=== PATIENT | male | born 1975 | race Caucasian/White ===

== ENCOUNTER → 2020-02-29 | Outpatient (CLI) | payer OTHER ==
[~2020-02-29] MED LIST: AIRBORNE GUMMI1 EACH PO; LORCET 5-325 M1 EACH PO; NORCO 5-325 TA1 EAC2 PO; SUPER THERAVIT1 EACH PO
== END ==
LOC: M.LAB 15:50
PROVIDERS: ATTEND Surgery
DX: Z01.812 Encounter for preprocedural laboratory examination (principal); Z20.828 Contact with and (suspected) exposure to other viral communicable diseases; D30.3 Benign neoplasm of bladder

== ENCOUNTER → 2020-03-04 | Day surgery (SDC) | payer OTHER ==
--- NOTE | ~2020-03-04 | OP ---
[facility] [address] [place] [address] OPERATIVE REPORT Name: GRISELDATOOTIE Martin Room: [facility]#: [id number] Admission: 03/04/20 Attend Phys: Carlos Saleem Discharge: Date of : 79 Report #: [id number] THIS REPORT FOR: //name// cc: Tyrone Fall Mohammad K. DO ~ CC: Carlos Fall DATE OF SERVICE: 03/04/2020 PREOPERATIVE DIAGNOSIS: Gallbladder polyp, chronic cholecystitis and abdominal pain. POSTOPERATIVE DIAGNOSIS: Gallbladder polyp, chronic cholecystitis and abdominal pain. OPERATION: Laparoscopic cholecystectomy. SURGEON: Carlos Saleem MD ANESTHESIA: General. ESTIMATED BLOOD LOSS: Minimal. SPECIMEN: Gallbladder. DESCRIPTION OF PROCEDURE: After informed consent was obtained, the patient was brought to the operating room and placed supine. SCDs were placed and working, preoperative antibiotics were administered, general anesthesia was induced. The abdomen was prepped and draped in the usual sterile fashion. A 10 mm incision was made below the umbilicus. Fascia was incised and a trocar was placed. Pneumoperitoneum was established. Three right upper quadrant 5 mm ports were placed. Gallbladder was grasped at the fundus and retracted cephalad. Infundibulum was grasped and retracted laterally. I dissected out the cystic duct and cystic artery. Cystic plate was fully identified. Cystic duct and artery were clipped and ligated leaving 2 clips on the remaining duct and one on the remaining artery. Gallbladder was then taken off the liver bed with electrocautery. It was placed into an Endopouch and removed. Fascia was then closed with a bcmsed-te-azaca 0 Vicryl. Skin was closed with 4-0 Monocryl. Incisions were sealed with Dermabond. COMPLICATIONS: [place] [address] OPERATIVE REPORT Name: GRISELDATOOTIE A Room: [facility]#: [id number] Admission: 03/04/20 Attend Phys: Carlos Saleem Discharge: Date of : 79 Report #: [id number] DISPOSITION: The patient was taken to recovery in satisfactory condition. By: [id number] Saleem MD /alvarado
--- NOTE | 2020-03-07 17:06 | PATH ---
[address] [address] PATHOLOGY RPT PROCEDURE Name: SHIV VILLALOBOS Room: [facility]#: [id number] Admission: 03/04/20 Date of : 79 Discharge: Report #: [id number] Path Case #: [id number] [facility] Accession Number: [id number] . 01 Material submitted: . gallbladder - GALLBLADDER AND CONTENTS . 01 Clinical history: . GALLBLADDER POLYPS . 02 Diagnosis: Gallbladder and contents: - Chronic cholecystitis with cholesterolosis including multiple prominent cholesterol polyps. . (AGUSTIN:mm; 03/07/2020) [facility] 03/07/2020 1341 Local . 02 Electronically signed: . Rafiq Yancey MD, Pathologist NPI- [id number] . 01 Gross description: . Received in formalin labeled "Shiv Villalobos, gallbladder and contents" is an intact cholecystectomy specimen measuring 7.5 x 3.4 x 3.0 cm. The serosa is ritter-green and smooth and the specimen is opened to reveal dark green velvety mucosa. Multiple polypoid areas are present within the gallbladder, covering 1% of the surfaces and ranging from 0.1-0.3 cm in greatest dimension. Four detached fragments of polypoid tissue are present within the lumen, measuring 1.0 x 0.8 x 0.5 cm in aggregate and ranging from 0.3-1.0 cm in greatest dimension. The average wall thickness is 0.1 cm. Calculi are not identified. [employer] sections of the specimen are submitted as follows: A1 cystic duct margin, rental sales representative fundus, rental sales representative body A2 fragments of detached polyps and polypoid areas on the mucosa ([facility] [place] 03/06/2020) [facility] 03/06/2020 [facility]3 Local . 02 Pathologist provided ICD-10: K81.1, K82.4 . 02 CPT . 832696 Specimen Comment: A courtesy copy of this report has been sent to [phone] Specimen Comment: [phone] Specimen Comment: Report sent to / DR BAHENA Performed at: [address] [place] [address] PATHOLOGY RPT PROCEDURE Name: SHIV VILLALOBOS Room: [facility]#: [id number] Admission: 03/04/20 Date of : 79 Discharge: Report #: [id number] Path Case #: [id number] [facility] [place] [address], [place], [place] [id number] MD Demond Kent MD Phone: [phone] Performed at: 02 [facility] [address], [place], [place] [id number] MD Rafiq Yancey MD Phone: [phone]
== END | disposition home or self-care (01) ==
LOC: M.SUR 10:16
PROVIDERS: ATTEND Surgery
DX: K82.4 Cholesterolosis of gallbladder (principal); R10.9 Unspecified abdominal pain; Z79.899 Other long term (current) drug therapy; Z88.8 Allergy status to other drugs, medicaments and biological substances

== ENCOUNTER → 2020-04-15 | Outpatient (CLI) | payer OTHER ==
[~2020-04-15] MED LIST changes: +NOHOMEMEDICATIONS
== END ==
LOC: M.LAB 06:48
PROVIDERS: ATTEND Surgery
DX: Z01.812 Encounter for preprocedural laboratory examination (principal); Z20.828 Contact with and (suspected) exposure to other viral communicable diseases

== ENCOUNTER → 2020-04-20 | Day surgery (SDC) | payer OTHER ==
--- NOTE | 2020-04-26 10:07 | PATH ---
[address] [address] PATHOLOGY RPT PROCEDURE Name: SHIV VILLALOBOS Room: [facility]#: [id number] Admission: 04/20/20 Date of : 79 Discharge: Report #: [id number] Path Case #: [id number] [facility] Accession Number: [id number] . 01 Material submitted: . abdomen - FOREIGN BODY FROM ABDOMINAL CAVITY . 01 Clinical history: . FOREIGN BODY REMOVAL . 02 Diagnosis: Gross diagnosis (retained foreign body): - Foreign body identified. (AGUSTIN:pit 04/25/2020) [facility] 04/25/2020 1511 Local . 02 Electronically signed: . Rafiq Yancey MD, Pathologist NPI- [id number] . 01 Gross description: . Received fresh labeled "Shiv Villalobos, retained foreign body" is a segment of ritter-white flexible rubbery tubing measuring 88.0 cm in length and 0.2 cm in diameter. No identifying russ are present. No gross abnormalities are identified. The specimen is received for gross identification only. [place] [place] [facility] 04/24/2020 1130 Local . 02 Pathologist provided ICD-10: Z03.89 . 02 CPT . 458514 Specimen Comment: A courtesy copy of this report has been sent to [phone] Specimen Comment: [phone] Specimen Comment: Report sent to / DR BAHENA Performed at: 01 [facility] [address], [place], [place] [id number] MD Cecil Sanchez MD Phone: [phone] Performed at: 02 [facility] [address], [place], [place] [id number] MD Rafiq Yancey MD Phone: [phone]
--- NOTE | 2020-05-15 11:15 | OP ---
[facility] [address] [place] [address] OPERATIVE REPORT Name: TOOTIE VILLALOBOS Room: [facility]#: [id number] Admission: 04/20/20 Attend Phys: Carlos Saleem Discharge: Date of : 79 Report #: [id number] THIS REPORT FOR: cc: Tyrone Fall Mohammad K. DO ~ Carlos Saleem MD DATE OF SERVICE: 04/20/2020 PREOPERATIVE DIAGNOSIS: Abdominal foreign body. POSTOPERATIVE DIAGNOSIS: Abdominal foreign body. OPERATION: Diagnostic laparoscopy with removal of intra-abdominal foreign body. SURGEON: Carlos Saleem MD ANESTHESIA: General. ESTIMATED BLOOD LOSS: Minimal. SPECIMEN: Abdominal foreign body. DESCRIPTION OF PROCEDURE: After informed consent was obtained, the patient was brought to the operating room and placed supine. SCDs were placed and working, preoperative antibiotics were administered, general anesthesia was induced. The abdomen was prepped and draped in the usual sterile fashion. A 5 mm incision was made in the left upper quadrant. A 5 mm trocar was placed under direct vision. The left lower quadrant 8 mm trocar was placed. I examined down in the pelvis. Posterior to the bladder, there was an obvious white tube. This appeared to be a white fluted Silastic tubing. I examined the small bowel and the bladder area. I examined the pelvis. There were no other abnormalities. There was no evidence that it was eroding into the bladder. It was easily grasped and pulled out through the 8 mm port. The ports were then removed under direct vision. The skin was closed with 4-0 Monocryl. Incisions were dressed with Steri-Strips. COMPLICATIONS: None. DISPOSITION: The patient was taken to recovery in satisfactory condition. <ELECTRONICALLY SIGNED> By: Carlos Saleem MD 05/15/20 1115 [id number] [id number] Saleem MD /nt
== END | disposition home or self-care (01) ==
LOC: M.SUR 05:26
PROVIDERS: ATTEND Surgery
DX: M79.5 Residual foreign body in soft tissue (principal); I10 Essential (primary) hypertension; Z98.890 Other specified postprocedural states; Z79.899 Other long term (current) drug therapy; Z88.8 Allergy status to other drugs, medicaments and biological substances